=== PATIENT | female | born 1945 | race Caucasian/White ===

== ENCOUNTER → 2019-02-28 | Outpatient (CLI) | payer MEDICARE ==
--- NOTE | 2019-03-01 07:50 | US ---
EXAMINATION TYPE: US carotid duplex BILAT DATE OF EXAM: 02/28/2019 COMPARISON: NONE CLINICAL HISTORY: R09.89 carotid bruit. Patient stated is asymptomatic, but diabetic EXAM MEASUREMENTS: RIGHT: Peak Systolic Velocity (PSV) cm/sec ----- Right CCA: 72.3 ----- Right ICA: 75.6 ----- Right ECA: 62.9 ICA/CCA ratio: 1.0 RIGHT: End Diastole cm/sec ----- Right CCA: 19.6 ----- Right ICA: 24.1 ----- Right ECA: 0.0 LEFT: Peak Systolic Velocity (PSV) cm/sec ----- Left CCA: 70.3 ----- Left ICA: 84.1 ----- Left ECA: 63.3 ICA/CCA ratio: 1.2 LEFT: End Diastole cm/sec ----- Left CCA: 18.8 ----- Left ICA: 28.6 ----- Left ECA: 0.0 VERTEBRALS (direction of flow): Right Vertebral: Antegrade Left Vertebral: Antegrade Rhythm: Normal IMPRESSION: Mild intimal wall thickening is noted at bilateral carotid bifurcation, but PSV is wnl bilaterally. T ortuous proximal Left CCA is noted. Criteria for Assigning % of Stenosis / Diameter reduction (Estimation based on the indirect measurements of the internal carotid artery velocities (ICA PSV). 1. Normal (no stenosis)=ICA PSV < 125 cm/s: ratio < 2.0: ICA EDV<40 cm/s. 2. Less than 50% stenosis=ICA PSV < 125 cm/s: ratio < 2.0: ICA EDV<40 cm/s. 3. 50 to 69% stenosis=ICA PSV of 125 to 230 cm/s: ration 2.0 ? 4.0: ICA EDV 40-100 cm/s. 4. Greater than 70% stenosis to near occlusion= ICA PSV > 230 cm/s: ratio > 4.0: ICA EDV > 100 cm/s. 5. Near occlusion= ICA PSV velocities may be low or undetectable: variable ratio and ICA EDV. 6. Total occlusion=unable to detect flow.
== END ==
LOC: RADUSWWP 16:47
PROVIDERS: ATTEND Family Medicine
DX: I77.89 Other specified disorders of arteries and arterioles (principal); I77.1 Stricture of artery
CPT/HCPCS: 93880

== ENCOUNTER → 2019-06-22 | Outpatient (CLI) | payer MEDICARE ==
--- NOTE | 2019-06-26 09:01 | MM ---
Reason for exam: screening (asymptomatic). Last mammogram was performed 3 years and 8 months ago. History: Patient is postmenopausal. Physical Findings: A clinical breast exam by your physician is recommended on an annual basis and results should be correlated with mammographic findings. MG Screening Mammo w CAD Bilateral CC and MLO view(s) were taken. Prior study comparison: October 17, 2015, mammogram. July 12, 2014, mammogram. No significant changes when compared with prior studies. ASSESSMENT: Benign, BI-RAD 2 RECOMMENDATION: Routine screening mammogram of both breasts in 1 year.
== END | disposition home or self-care (01) ==
LOC: RADMAMWWP 13:54
PROVIDERS: ATTEND Family Medicine
DX: Z12.31 Encounter for screening mammogram for malignant neoplasm of breast (principal)
CPT/HCPCS: 77067

== ENCOUNTER → 2020-09-11 | Outpatient (CLI) | payer MEDICARE ==
--- NOTE | 2020-09-16 10:56 | MM ---
Reason for exam: screening (asymptomatic). Last mammogram was performed 1 year and 3 months ago. History: Patient is postmenopausal. Taking estrogen. Physical Findings: A clinical breast exam by your physician is recommended on an annual basis and results should be correlated with mammographic findings. MG 3D Screening Mammo W/Cad Bilateral CC and MLO view(s) were taken. Prior study comparison: June 22, 2019, bilateral MG screening mammo w CAD. October 17, 2015, mammogram. There are scattered fibroglandular densities. No significant changes when compared with prior studies. ASSESSMENT: Benign, BI-RAD 2 RECOMMENDATION: Routine screening mammogram of both breasts in 1 year.
== END | disposition home or self-care (01) ==
LOC: RADMAMWWP 14:16
PROVIDERS: ATTEND Family Medicine
DX: Z12.31 Encounter for screening mammogram for malignant neoplasm of breast (principal)
CPT/HCPCS: 77063; 77067

== ENCOUNTER → 2021-07-07 | Outpatient (CLI) | payer MEDICARE ==
--- NOTE | 2021-07-07 16:20 | US ---
EXAMINATION TYPE: US venous doppler duplex LE LT DATE OF EXAM: 07/07/2021 2:17 PM COMPARISON: NONE CLINICAL HISTORY: 76-year-old female LLE R22.42. edema left leg SIDE PERFORMED: left TECHNIQUE: The lower extremity deep venous system is examined utilizing real time linear array sonog julien with graded compression, doppler sonography and color-flow sonography. FINDINGS: VESSELS IMAGED: Common Femoral Vein Deep Femoral Vein Greater Saphenous Vein * Femoral Vein Popliteal Vein Small Saphenous Vein * Proximal Calf Veins (* superficial vessels) Left Leg: Music [employer] notes: No evidence of DVT at this time. Rouleaux flow left popliteal vein. IMPRESSION: No evidence for DVT within the left lower extremity imaged from the groin to the upper calf. Incident ally, some slow flow noted in the popliteal vein.
== END | disposition home or self-care (01) ==
LOC: RADUSWWP 13:50
PROVIDERS: ATTEND Family Medicine
DX: R22.42 Localized swelling, mass and lump, left lower limb (principal)

== ENCOUNTER 2021-07-08 09:44 | Emergency (ER) | payer MEDICARE ==
[2021-07-08 10:13] VITALS: PULSE 86
[2021-07-08] MEDS ORDERED: SODIUM CHLORIDE 0.9% 1,000 ML IV STA ×2 (11:03→16:01)
[2021-07-08] MEDS ORDERED: MORPHINE SULFATE 4 MG/ML SYRINGE IVP STA (11:03)
--- NOTE | 2021-07-08 11:12 | ED ---
General Adult HPI - General Chief complaint: Recheck/Abnormal Lab/Rx Stated complaint: leg infection Time Seen by Provider: 07/08/21 10:36 Source: patient Mode of arrival: wheelchair Limitations: no limitations - History of Present Illness Initial comments: 76-year-old female with a past medical history of type 1 diabetes mellitus, hypertension presents to the emergency room for a chief complaint of left leg pain. Patient states she has had left leg pain for almost 2 weeks now. Patient states she had an injection on the right hip on June [address] aguayo. States that in the next few days she developed a large lump over the area and it was painful. States she tried to call but could not get through. Patient states that her leg started to swell and now it is painful to bend her knee. She finally saw her primary care doctor this past week. He did blood work on her as well as a d-dimer. Her d-dimer ended up being positive so she had an ultrasound performed here yesterday outpatient that was negative for acute process. Patient states her doctor then sent her into the emergency room for evaluation. Patient states her pain is worse in the lateral left thigh. She has been having pain with flexion of her hip and knee but seems to be worse in the knee. She has had fevers on and off.Patient has no other complaints at this time including shortness of breath, chest pain, abdominal pain, nausea or vomiting, headache, or visual changes. - Related Data Home Medications Medication Instructions Recorded Confirmed Cholecalciferol [Vitamin D3 (25 50 mcg PO DAILY 07/08/21 07/08/21 Mcg = 1000 Iu)] Estradiol Cream [Estrace Cream 1 gm VAGINAL SUWE 07/08/21 07/08/21 0.01%] INSULIN LISPRO (HumaLOG) [humaLOG] See Protocol SQ AC-TID 07/08/21 07/08/21 Insulin Glargine [Lantus Vial] 20 unit SQ HS 07/08/21 07/08/21 Irbesartan [Avapro] 300 mg PO DAILY 07/08/21 07/08/21 Levothyroxine Sodium [Synthroid] 50 mcg PO DAILY 07/08/21 07/08/21 Simvastatin [Zocor] 20 mg PO DAILY 07/08/21 07/08/21 amLODIPine [Norvasc] 5 mg PO DAILY 07/08/21 07/08/21 cefTRIAXone [Rocephin] 1 gm INJ ONCE 07/08/21 07/08/21 clindamycin HCL [Cleocin] 300 mg PO Q6H 07/08/21 07/08/21 sitaGLIPtin PHOS/metFORMIN HCL 0.5 tab PO BID 07/08/21 07/08/21 [Janumet 50-1,000 mg Tablet] Allergies Allergy/AdvReac Type Severity Reaction Status Date / Time No Known Allergies Allergy Verified 07/08/21 11:16 Review of Systems ROS Statement: Those systems with pertinent positive or pertinent negative responses have been documented in the HPI. ROS Other: All systems not noted in ROS Statement are negative. Past Medical History Past Medical History: Diabetes Mellitus, Hypertension Additional Past Medical History / Comment(s): type 1 History of Any Multi-Drug Resistant Organisms: None Reported Past Surgical History: No Surgical Hx Reported Past Psychological History: No Psychological Hx Reported Smoking Status: Never smoker Past Alcohol Use History: None Reported Past Drug Use History: None Reported General Exam Limitations: no limitations General appearance: alert, in no apparent distress Head exam: Present: atraumatic Eye exam: Present: normal appearance, PERRL, EOMI. Absent: scleral icterus, conjunctival injection ENT exam: Present: normal exam, mucous membranes moist Neck exam: Present: normal inspection, full ROM. Absent: tenderness Respiratory exam: Present: normal lung sounds bilaterally. Absent: respiratory distress, wheezes Cardiovascular Exam: Present: regular rate, normal rhythm, normal heart sounds Extremities exam: Present: normal capillary refill (cap refill < 2 seconds), joint swelling (edema of the knee and extending through the upper leg), other (sensation intact). Absent: full ROM (45 flexion L leg), calf tenderness Neurological exam: Present: alert Course Vital Signs 07/08/21 07/08/21 10:10 15:55 Temperature 98.2 F 99.4 F Pulse Rate 86 Respiratory 18 87 H Rate Blood Pressure 102/63 118/73 O2 Sat by Pulse 95 95 Oximetry - Reevaluation(s) Reevaluation #1: 07/08/21 1333 - notified by Armen MILLER that this case will need to be transferred after he examined the patient. 1354 Off the phone with [facility], they cannot get a hold of their bed coordinator and will call me back shortly. Reevaluation #2: 07/08/21 After patient was evaluated by [facility], Armen, they are recommending transfer. There was delay from [facility] transfer team as they could not get a hold of their lead embedded software engineer. Ultimately patient was transferred to [facility]. Medical Decision Making - Medical Decision Making Vitals are stable. HPI and physical exam as documented. Patient is able to flex the hip to 90. Able to flex the knee to about 45. Tenderness of the lateral hip and the knee. There is erythema and edema of the left knee. Edema extending from the proximal leg to the knee. CBC does show them both cytosis. CMP generally unremarkable. CRP significantly elevated at 18.7. ESR is pending. X-ray of the femur and knee show gas forming organism infection within the soft tissue of the proximal left lower extremity. Correlate for cellulitis versus abscess. Difficult to exclude osteomyelitis, correlate for remote history of trauma to the left femur. Case discussed with Armen from . Agreeable to starting on vancomycin and zosyn. He requested admission to [facility]. After patient was evaluated was recommended patient be transferred to a higher level of care. Ultimately [facility] did accept this transfer. - Lab Data Result diagrams: 07/08/21 11:13 07/08/21 11:13 Lab Results 07/08/21 07/08/21 07/08/21 Range/Units 11:13 11:13 11:13 WBC 10.4 (3.8-10.6) k/uL RBC 3.90 (3.80-5.40) m/uL Hgb 11.9 (11.4-16.0) gm/dL Hct 37.5 (34.0-46.0) % MCV 96.1 (80.0-100.0) fL MCH 30.5 (25.0-35.0) pg MCHC 31.7 (31.0-37.0) g/dL RDW 13.2 (11.5-15.5) % Plt Count 655 H (150-450) k/uL MPV 7.4 Neutrophils % 83 % Lymphocytes % 11 % Monocytes % 3 % Eosinophils % 2 % Basophils % 0 % Neutrophils # 8.6 H (1.3-7.7) k/uL Lymphocytes # 1.1 (1.0-4.8) k/uL Monocytes # 0.3 (0-1.0) k/uL Eosinophils # 0.2 (0-0.7) k/uL Basophils # 0.0 (0-0.2) k/uL ESR 75 H (0-20) mm/hr Sodium 135 L (137-145) mmol/L Potassium 4.5 (3.5-5.1) mmol/L Chloride 102 (98-107) mmol/L Carbon Dioxide 24 (22-30) mmol/L Anion Gap 9 mmol/L BUN 19 H (7-17) mg/dL Creatinine 0.80 (0.52-1.04) mg/dL Est GFR (CKD-EPI)AfAm 84 (>60 ml/min/1.73 sqM) Est GFR (CKD-EPI)NonAf 73 (>60 ml/min/1.73 sqM) Glucose 150 H (74-99) mg/dL Plasma Lactic Acid Jesus 1.6 (0.7-2.0) mmol/L Calcium 9.3 (8.4-10.2) mg/dL Total Bilirubin 0.6 (0.2-1.3) mg/dL AST 21 (14-36) U/L ALT 16 (4-34) U/L Alkaline Phosphatase 132 H (38-126) U/L C-Reactive Protein 18.7 H (<1.0) mg/dL Total Protein 6.7 (6.3-8.2) g/dL Albumin 3.4 L (3.5-5.0) g/dL Coronavirus (PCR) (Not Detectd) 07/08/21 Range/Units 14:14 WBC (3.8-10.6) k/uL RBC (3.80-5.40) m/uL Hgb (11.4-16.0) gm/dL Hct (34.0-46.0) % MCV (80.0-100.0) fL MCH (25.0-35.0) pg MCHC (31.0-37.0) g/dL RDW (11.5-15.5) % Plt Count (150-450) k/uL MPV Neutrophils % % Lymphocytes % % Monocytes % % Eosinophils % % Basophils % % Neutrophils # (1.3-7.7) k/uL Lymphocytes # (1.0-4.8) k/uL Monocytes # (0-1.0) k/uL Eosinophils # (0-0.7) k/uL Basophils # (0-0.2) k/uL ESR (0-20) mm/hr Sodium (137-145) mmol/L Potassium (3.5-5.1) mmol/L Chloride (98-107) mmol/L Carbon Dioxide (22-30) mmol/L Anion Gap mmol/L BUN (7-17) mg/dL Creatinine (0.52-1.04) mg/dL Est GFR (CKD-EPI)AfAm (>60 ml/min/1.73 sqM) Est GFR (CKD-EPI)NonAf (>60 ml/min/1.73 sqM) Glucose (74-99) mg/dL Plasma Lactic Acid Jesus (0.7-2.0) mmol/L Calcium (8.4-10.2) mg/dL Total Bilirubin (0.2-1.3) mg/dL AST (14-36) U/L ALT (4-34) U/L Alkaline Phosphatase (38-126) U/L C-Reactive Protein (<1.0) mg/dL Total Protein (6.3-8.2) g/dL Albumin (3.5-5.0) g/dL Coronavirus (PCR) Not Detected (Not Detectd) Disposition Clinical Impression: Knee pain, Cellulitis, Hip pain, Thrombocytosis, Elevated C-reactive protein (CRP) Narrative: possible abscess Disposition: ADMITTED IP TO THIS [facility] Condition: Serious Is patient prescribed a controlled substance at d/c from ED?: No Referrals: Kirt Campa MD [Primary Care Provider] - 1-2 days Time of Disposition: 12:54
[2021-07-08 11:41] LABS: Basophils % (A) 0 %; Eosinophils # (A) 0.2 k/uL (0-0.7); Eosinophils % (A) 2 %; HCT 37.5 % (34.0-46.0); HGB 11.9 gm/dL (11.4-16.0); Lymphocytes # (A) 1.1 k/uL (1.0-4.8); Lymphocytes % (A) 11 %; MCH 30.5 pg (25.0-35.0); MCHC 31.7 g/dL (31.0-37.0); MCV 96.1 fL (80.0-100.0); Mean Platelet Volume 7.4; Monocytes # (A) 0.3 k/uL (0-1.0); Monocytes % (A) 3 %; Neutrophils # (A) 8.6 k/uL (1.3-7.7); Neutrophils % (A) 83 %; Platelet Count 655 k/uL (150-450); RDW 13.2 % (11.5-15.5); WBC 10.4 k/uL (3.8-10.6)
[2021-07-08 11:45] LABS: Albumin 3.4 g/dL (3.5-5.0); Calcium 9.3 mg/dL (8.4-10.2); Potassium 4.5 mmol/L (3.5-5.1); Total Bilirubin 0.6 mg/dL (0.2-1.3); Total Protein 6.7 g/dL (6.3-8.2)
[2021-07-08 12:05] LABS: C Reactive Protein 18.7 mg/dL (<1.0)
--- NOTE | 2021-07-08 12:15 | XR ---
Left femur and left knee HISTORY: Cellulitis, pain Frontal lateral views of left femur on 4 images, 3 views of left knee submitted. There are arthropathy changes within the knee. Spurring is present especially at the femoral patellar joint, medial compartment. Bone mineralization is reduced. Alignment maintained. No fracture or disl ocation. There is soft tissue swelling. There are areas of gas density within the soft tissues of the proximal left thigh. There is some ante rior bowing, cortical thickening of the mid diaphyseal left femur. Difficult to exclude periosteal re action. No acute fracture or dislocation. IMPRESSION: Findings suggest gas-forming organism infection within the soft tissues of the proximal l eft lower extremity. Correlate for cellulitis versus abscess. Difficult to exclude osteomyelitis, cor relate for remote history of trauma to the left femur. Osteoarthritis.
[2021-07-08] MEDS ORDERED: VANCOMYCIN IV PER PHARMACY 1 EACH MISC MISCELLANE PRN (12:50)
[2021-07-08] MEDS ORDERED: PIPERACILLIN-TAZOBACTAM 3.375 GM in SODIUM CHLORIDE 0.9% 100 ML IVPB STA (12:50)
[2021-07-08] MEDS ORDERED: VANCOMYCIN 1,250 MG in SODIUM CHLORIDE 0.9% 250 ML IVPB STA (12:53)
[2021-07-08 13:41] LABS: Erythrocyte Sedimentation Rate 75 mm/hr (0-20)
[2021-07-08 15:58] VITALS: BP 118/73; RESP 87; TEMP 99.4
[2021-07-08] MEDS ORDERED: ACETAMINOPHEN TAB 500 MG TAB PO STA (16:01)
[2021-07-09] MEDS ORDERED: PIPERACILLIN-TAZOBACTAM 3.375 GM in SODIUM CHLORIDE 0.9% 100 ML IVPB SCH ×2
[2021-07-09] MEDS ORDERED: VANCOMYCIN 1,250 MG in SODIUM CHLORIDE 0.9% 250 ML IVPB SCH (05:00)
== END 2021-07-08 16:20 | disposition other institution (70) ==
LOC: EC 09:44
DX: L03.116 Cellulitis of left lower limb (principal); D75.839 Thrombocytosis, unspecified; R79.82 Elevated C-reactive protein (CRP); E10.9 Type 1 diabetes mellitus without complications; I10 Essential (primary) hypertension; Z79.4 Long term (current) use of insulin; Z20.822 Contact with and (suspected) exposure to COVID-19
CPT/HCPCS: 99284; 96365; 96366; 96375; 96361; 36415; 80053; 85652; 83605; 85025; 86140; 87040; 87635; 73552; 73562; J2543; J3370

== ENCOUNTER → 2023-10-05 | Outpatient (CLI) | payer MEDICARE ==
--- NOTE | 2023-10-07 18:55 | MM ---
Reason for Exam: Screening (asymptomatic). Last mammogram was performed 3 year(s) and 1 month(s) ago. Patient History: Menarche at age 15. First Full-Term at age 19. Postmenopausal. Patient has history of breast feeding. Currently using Estrogen. Risk Values: Salima 5 year model risk: 1.1%. NCI Lifetime model risk: 2.2%. Prior Study Comparison: 10/17/2015 Screening Mammogram, Unknown. 06/22/2019 Bilateral Screening Mammogram, [facility]. 09/11/2020 Bilateral Screening Mammogram, [facility]. Tissue Density: There are scattered areas of fibroglandular density. Findings: Analyzed By CAD. Unchanged bilateral areas of asymmetric density. There is no suspicious group of microcalcifications or new suspicious mass in either breast. Overall Assessment: Benign, BI-RAD 2 Management: Screening Mammogram of both breasts in 1 year. . Patient should continue monthly self-breast exams. A clinical breast exam by your physician is recommended on an annual basis. This exam should not preclude additional follow-up of suspicious palpable abnormalities. Note on Salima scores and lifetime risk: 1. A Salima score greater than 3% is considered moderate risk. If this is the case, consider specialist referral to assess eligibility for a risk reducing agent. 2. If overall lifetime risk for the development of breast cancer is 20% or higher, the patient may qualify for future screening with alternating mammogram and breast MRI. Electronically signed and approved by: Tyrone Hoang M.D. Radiologist
== END | disposition home or self-care (01) ==
LOC: RADMAMWWP 13:56
PROVIDERS: ATTEND Family Medicine
DX: Z12.31 Encounter for screening mammogram for malignant neoplasm of breast (principal); Z78.0 Asymptomatic menopausal state
CPT/HCPCS: 77063; 77067

== ENCOUNTER → 2024-08-17 | Outpatient (CLI) | payer MEDICARE ==
[2024-08-17 18:46] LABS: Microalbumin Creatinine Ratio <21 mg/g Cr (0-30); Urine Creatinine 56.6 mg/dL (28.0-217.0)
[2024-08-17 18:51] LABS: Albumin 4.7 g/dL (3.8-4.9); BUN/Creat Ratio 14.64 Ratio (12.00-20.00); Blood Urea Nitrogen 16.1 mg/dL (9.0-27.0); Calcium 9.7 mg/dL (8.7-10.3); Carbon Dioxide 24.1 mmol/L (21.6-31.8); Chloride 103 mmol/L (96-109); Chol/HDL Ratio 1.87 Ratio; Glucose 124 mg/dL (70-110); LDL Cholesterol,Calculated 65.2 mg/dL (0.0-131.0); Phosphorus 3.9 mg/dL (2.4-5.1); Potassium 4.6 mmol/L (3.5-5.5); Sodium 140 mmol/L (135-145); VLDL Calculation 15.44 mg/dL (5.00-40.00)
[2024-08-17 20:13] LABS: C-Peptide <0.02 ng/mL (0.81-3.85)
== END | disposition home or self-care (01) ==
LOC: LABWHC1 13:28
PROVIDERS: ATTEND Internal Medicine
DX: E10.65 Type 1 diabetes mellitus with hyperglycemia (principal)
CPT/HCPCS: 36415; 80061; 80069; 82043; 82570; 83036; 84681

== ENCOUNTER → 2024-10-19 | Outpatient (CLI) | payer MEDICARE ==
--- NOTE | 2024-10-20 07:34 | MM ---
Reason for Exam: Screening (asymptomatic). Last screening mammogram was performed 12 month(s) ago. Patient History: Menarche at age 15. First Full-Term at age 19. Postmenopausal. Patient has history of breast feeding. Used Estrogen. Risk Values: Salima 5 year model risk: 1.1%. NCI Lifetime model risk: 2.0%. Prior Study Comparison: 06/22/2019 Bilateral Screening Mammogram, [facility]. 09/11/2020 Bilateral Screening Mammogram, [facility]. 10/05/2023 Bilateral MG 3D screening mammo w/cad, [facility]. Tissue Density: The breasts are heterogeneously dense, which may obscure small masses. Findings: Analyzed By CAD. Right breast: There is no suspicious group of microcalcifications or new suspicious mass. Left breast: There is no suspicious group of microcalcifications or new suspicious mass. Overall Assessment: Negative, BI-RAD 1 Management: Screening Mammogram of both breasts in [address] [facility] will attempt to contact patient to return for supplemental views and ultrasound if indicated. Patient should continue monthly self-breast exams. A clinical breast exam by your physician is recommended on an annual basis. This exam should not preclude additional follow-up of suspicious palpable abnormalities. Note on Salima scores and lifetime risk: 1. A Salima score greater than 3% is considered moderate risk. If this is the case, consider specialist referral to assess eligibility for a risk reducing agent. 2. If overall lifetime risk for the development of breast cancer is 20% or higher, the patient may qualify for future screening with alternating mammogram and breast MRI. [facility], , 10/20/2024 7:30 AM. Electronically signed and approved by: Alan Guillory DO
== END | disposition home or self-care (01) ==
LOC: RADMAMWWP 15:27
PROVIDERS: ATTEND Family Medicine
DX: Z12.31 Encounter for screening mammogram for malignant neoplasm of breast (principal); R92.333 Mammographic heterogeneous density, bilateral breasts; Z78.0 Asymptomatic menopausal state
CPT/HCPCS: 77063; 77067